=== PATIENT | female | born 1980 | race African-American/Black ===

== ENCOUNTER 2017-09-20 21:19 | Emergency (ER) | payer MEDICARE ==
[~2017-09-20] VITALS: Ht 165.1 cm; Wt 94.5 kg
[~2017-09-20 21:19] MED LIST: AMLO10TA4 PO; DOCU-150 PO; FERR-63 PO; LISI30TA36; METF-516 PO; TRIA1CAP6 PO
[2017-09-20] MEDS ORDERED: SODIUM CHLORIDE 0.9% 1,000 ML IV ONE (23:25)
[2017-09-21 02:04] LABS: BASOPHILS % 0.6 % (0.0-2.0); EOSINOPHILS % 0.2 % (0.0-5.0); HEMATOCRIT. 35.1 % (36.0-48.0); HEMOGLOBIN. 11.5 g/dL (12.0-16.0); LYMPHOCYTES % 16.9 % (20.0-50.0); MEAN CORPUSCULAR HEMOGLOBIN 23.6 pg (28.0-32.0); MEAN CORPUSCULAR VOLUME 72.1 fL (81.0-99.0); MEAN PLATELET VOLUME 7.4 fl (7.4-10.4); MONOCYTES % 4.7 % (2.0-8.0); NEUTROPHILS % 77.6 % (40.0-76.0); PLATELET 168 x1000/uL (130-400); RED BLOOD CELL COUNT 4.87 mill/uL (4.2-5.4); RED CELL DISTRIBUTION WIDTH 19.1 % (11.6-14.6)
[2017-09-21 02:05] LABS: CHLORIDE 105 mEq/L (98-107)
[2017-09-21 02:07] LABS: INR 1.1; PROTHROMBIN TIME 11.4 sec (9.4-11.6)
[2017-09-21 02:18] LABS: HCG SCREEN NEGATIVE
[2017-09-21] MEDS ORDERED: ONDANSETRON HCL 4MG/2ML VIAL IV ONE (02:45)
[2017-09-21] MEDS ORDERED: KETOROLAC 30MG/ML VIAL IV ONE (02:45)
[2017-09-21 04:47] VITALS: BP 142/88
== END 2017-09-21 04:50 | disposition home or self-care (01) ==
LOC: ER 21:36
DX: K80.20 Calculus of gallbladder without cholecystitis without obstruction (principal); E11.9 Type 2 diabetes mellitus without complications; F10.20 Alcohol dependence, uncomplicated; I10 Essential (primary) hypertension; Q05.9 Spina bifida, unspecified; R19.7 Diarrhea, unspecified; R11.0 Nausea; Z88.8 Allergy status to other drugs, medicaments and biological substances; Z79.899 Other long term (current) drug therapy
CPT/HCPCS: 36415; 76705; 80053; 83690; 84703; 85025; 85610; 96361; 96374; 96375; 99285; J1885; J2405; J7030

== ENCOUNTER 2017-09-21 17:08 | Emergency (ER) | payer MEDICARE, MEDICAID ==
[~2017-09-21] VITALS: Ht 157.5 cm; Wt 95.0 kg
[2017-09-21 18:47] LABS: EOSINOPHILS % 1.4 % (0.0-5.0); HEMATOCRIT. 33.8 % (36.0-48.0); HEMOGLOBIN. 11.2 g/dL (12.0-16.0); LYMPHOCYTES % 19.5 % (20.0-50.0); MEAN CORPUSCULAR HEMOGLOBIN 23.7 pg (28.0-32.0); MEAN CORPUSCULAR VOLUME 71.7 fL (81.0-99.0); NEUTROPHILS % 71.1 % (40.0-76.0); PLATELET 140 x1000/uL (130-400); RED BLOOD CELL COUNT 4.71 mill/uL (4.2-5.4)
[2017-09-21 18:57] LABS: CHLORIDE 104 mEq/L (98-107)
[2017-09-21 18:59] LABS: ETHANOL BLOOD < 10 mg/dL
[2017-09-21 22:30] LABS: CLARITY URINE CLEAR (CLEAR); COLOR URINE YELLOW (YELLOW); KETONES URINE 2+ (NEGATIVE); LEUKOCYTE ESTERASE URINE NEGATIVE (NEGATIVE); NITRITE URINE NEGATIVE (NEGATIVE); OCCULT BLOOD URINE NEGATIVE (NEGATIVE); PH URINE 6.5 (4.5-8.0); PROTEIN URINE NEGATIVE (NEGATIVE); SPECIFIC GRAVITY URINE 1.015 (1.005-1.030)
[2017-09-21 22:45] LABS: *AMPHETAMINES SCREEN URINE NEGATIVE (NEGATIVE); *BARBITURATES SCREEN URINE NEGATIVE (NEGATIVE); *BENZODIAZEPINES SCREEN URINE NEGATIVE (NEGATIVE); *COCAINE SCREEN URINE NEGATIVE (NEGATIVE); CANNABINOID URINE SCREEN NEGATIVE (NEGATIVE); METHADONE URINE SCREEN NEGATIVE (NEGATIVE); OPIATES URINE SCREEN NEGATIVE (NEGATIVE); PHENCYCLIDINE URINE SCREEN NEGATIVE (NEGATIVE)
[2017-09-22 21:30] VITALS: BP 124/80
== END 2017-09-23 13:16 ==
LOC: ER 17:42
DX: R44.1 Visual hallucinations (principal); R44.0 Auditory hallucinations; R45.851 Suicidal ideations; R10.11 Right upper quadrant pain; F10.20 Alcohol dependence, uncomplicated; E11.9 Type 2 diabetes mellitus without complications; F32.9 Major depressive disorder, single episode, unspecified; I10 Essential (primary) hypertension; Z88.8 Allergy status to other drugs, medicaments and biological substances
CPT/HCPCS: 36415; 80053; 80305; 80307; 80329; 81003; 81025; 83690; 85025; 99285; G0482

== ENCOUNTER 2024-11-20 04:49 | Inpatient (IN) | payer MEDICARE, OTHER ==
[~2024-11-20] VITALS: Ht 157.5 cm; Wt 120.2 kg
[~2024-11-20 04:49] MED LIST changes: +AMLO-905 PO; -AMLO10TA4 PO; -DOCU-150 PO; +DOCU-422 PO; -METF-516 PO; +METF-818 PO
[2024-11-20] MEDS: OCTREOTIDE ACETATE 50 MCG/ML 1ML SUBCUT ONE (06:27)
[2024-11-20] MEDS ORDERED: NALOXONE HCL 0.4MG/ML VIAL IV PRN (07:30)
[2024-11-20] MEDS ORDERED: ONDANSETRON HCL 4MG/2ML INJ IV PRN (07:30)
[2024-11-20] MEDS ORDERED: ENOXAPARIN 40MG/0.4ML SYR SUBCUT SCH (07:30)
[2024-11-20] MEDS ORDERED: HYDROCODONE/ACETAMINOPHEN 5/325MG TABLET PO PRN (07:30)
[2024-11-20] MEDS ORDERED: IPRATROPIUM/ALBUTEROL 0.5-3(2.5)MG/3ML NEB HHN PRN (07:30)
[2024-11-20 07:50] LABS: BASOPHILS % 0.4 % (0.0-2.0); DIFFERENTIAL COMMENT 0; HEMATOCRIT. 35.1 % (36.0-48.0); HEMOGLOBIN. 11.2 g/dL (12.0-16.0); LYMPHOCYTES % 12.6 % (20.0-50.0); MEAN CORPUSCULAR HEMOGLOBIN 24.6 pg (28.0-32.0); MEAN CORPUSCULAR HGB CONC 31.8 g/dL (31.0-37.0); MEAN CORPUSCULAR VOLUME 77.4 fL (81.0-99.0); MEAN PLATELET VOLUME 7.6 fl (7.4-10.4); MONOCYTES % 5.6 % (2.0-8.0); NEUTROPHILS % 80.4 % (40.0-76.0); PLATELET 301 x1000/uL (130-400); RED BLOOD CELL COUNT 4.54 mill/uL (4.2-5.4); RED CELL DISTRIBUTION WIDTH 16.8 % (11.6-14.6); WHITE BLOOD COUNT 6.6 x1000/uL (4.5-11.0)
[2024-11-20 07:55] LABS: CHLORIDE 100 mEq/L (98-107); POTASSIUM 3.6 mEq/L (3.5-5.1); PROTHROMBIN TIME 10.3 sec (9.6-11.0); SODIUM 135 mEq/L (136-145)
[2024-11-20 07:56] LABS: CARBON DIOXIDE 24 mEq/L (21-32)
[2024-11-20 07:57] LABS: CALCIUM 10.1 mg/dL (8.7-10.4)
[2024-11-20 08:00] VITALS: BP 120/68; PULSE 101; RESP 18; TEMP 36.3; O2SAT 100
[2024-11-20 08:01] LABS: CREATININE 0.7 mg/dL (0.6-1.0); GLUCOSE 71 mg/dL (70-105); UREA NITROGEN BLOOD 14 mg/dL (9-23)
[2024-11-20 08:02] LABS: ETHANOL BLOOD 94 mg/dL (<10)
[2024-11-20 08:03] LABS: ALANINE AMINOTRANSFERASE 22 IU/L (10-49); ALBUMIN 4.5 g/dL (3.2-4.8); ASPARTATE AMINOTRANSFERASE 28 IU/L (<34); BILIRUBIN DIRECT < 0.1 mg/dL (<=3.0)
[2024-11-20 08:04] LABS: BILIRUBIN TOTAL 0.3 mg/dL (0.1-1.0); PROTEIN TOTAL 8.1 g/dL (6.0-8.3)
[2024-11-20 08:12] LABS: HCG SCREEN NEGATIVE
[2024-11-20 08:21] LABS: TROPONIN I HIGH SENSITIVITY < 4 ng/L (3.0-34)
[2024-11-20] MEDS: ENOXAPARIN 30MG/0.3ML SYR SUBCUT SCH (09:00)
[2024-11-20 12:00] VITALS: BP 143/79; PULSE 104; RESP 20; TEMP 36.3; O2SAT 98
[2024-11-20 12:05] VITALS: BP 143/79; PULSE 104; RESP 20; TEMP 36.3; O2SAT 98
[2024-11-20] MEDS: BLOOD SUGAR DIAGNOSTIC STRIP TEST SCH (12:40)
[2024-11-20 13:00] VITALS: BP 120/68; PULSE 101; RESP 18; TEMP 36.3
[2024-11-20 16:00] VITALS: BP 130/79; PULSE 99; RESP 20; TEMP 36.1; O2SAT 100
[2024-11-20 18:54] VITALS: BP 130/79; PULSE 102; TEMP 97; O2SAT 100
== END 2024-11-20 19:55 | disposition home or self-care (01) | DRG 638 ==
LOC: ER 04:49 → 7WST 06:15
PROVIDERS: ADMIT Internal Medicine; ATTEND Internal Medicine
DX: E11.649 Type 2 diabetes mellitus with hypoglycemia without coma (principal); Z68.42 Body mass index [BMI] 45.0-49.9, adult; F10.129 Alcohol abuse with intoxication, unspecified; E66.9 Obesity, unspecified; I10 Essential (primary) hypertension; Y90.4 Blood alcohol level of 80-99 mg/100 ml; Z79.899 Other long term (current) drug therapy
CPT/HCPCS: 36415; 71045; 80048; 80076; 80320; 82962; 83036; 84484; 84703; 85025; 93005; 99291; J2354; G0480